=== PATIENT | female | born 1955 ===

== ENCOUNTER 2024-04-27 05:35 | Day surgery (SDC) | payer OTHER ==
[~2024-04-27 05:35] MED LIST: AMLODIPINE-OLM1 EACH; AVAPRO300 MG; AVAPRO300 MG PO; CRESTOR40 MG PO; FENOFIBRIC ACI105 MG; GLUMETZA500 MG PO; TOPROL XL50 M1 PO
[2024-04-27] MEDS ORDERED: CEFTRIAXONE SODIUM 2,000 MG VIAL ONE (06:56)
[2024-04-27] MEDS ORDERED: METRONIDAZOLE/SODIUM CHLORIDE 500 MG/100 ML PIGGYBACK IV ONE (06:56)
[2024-04-27] MEDS ORDERED: BUPIVACAINE HCL/Mpf 0.5% 10ML VIAL ONE (07:18)
[2024-04-27] MEDS ORDERED: POVIDONE-IODINE 118 ML BOTT TOP ONE (07:18)
[2024-04-27] MEDS ORDERED: HEMOSTATIC MATRIX 1 KIT KIT TOP ONE (07:18)
[2024-04-27] MEDS ORDERED: DIBUCAINE 30 GM TUBE ONE (07:18)
[2024-04-27] MEDS ORDERED: LIDOCAINE HCL 1%/EPINEPHRINE 20ML VIAL IJ ONE (07:19)
== END 2024-04-27 13:00 | disposition home or self-care (01) ==
LOC: CIR.AMB 05:35
PROVIDERS: ATTEND Colon & Rectal Surgery
DX: K60.30 Anal fistula, unspecified (principal); K60.1 Chronic anal fissure; K64.1 Second degree hemorrhoids; I10 Essential (primary) hypertension; E78.5 Hyperlipidemia, unspecified